=== PATIENT | female | born 1960 | race Caucasian/White ===

== ENCOUNTER 2019-08-20 17:39 | Emergency (ER) | payer OTHER ==
[~2019-08-20] VITALS: Ht 160 cm; Wt 81.6 kg
[2019-08-20 17:44] VITALS: BP 136/92
--- NOTE | 2019-08-20 17:44 | NUR ---
PT BIBA AND PLACED IN BED 12.
[2019-08-20] MEDS ORDERED: KETOROLAC 60 MG/2 ML VIAL IM ONE (18:20)
--- NOTE | 2019-08-20 18:24 | NUR ---
PT RETURNED FROM CT AND PLACED IN BED 12.
--- NOTE | 2019-08-20 18:32 | NUR ---
58 YEAR OLD FEMALE COMPLAINS OF HEADACHE AND BLURRED VISION AFTER A BOX LANDED ON HER HEAD YESTERDAY. SITE ON HEAD IS WITHOUT ABRASION, REDNESS, SWELLING, OR DISCHARGE. DENIED LOSING CONSCIOUSNESS. PUPILS PERRLA. PATIENT STATES SHE FEELS NAUSEA, BUT NO VOMIT. PATIENT IS ALERT AND ORIENTED. BED IN LOWEST POSITION, LOCKED, BED RAIL UPX1. HX LUPUS
[2019-08-20 19:30] VITALS: BP 131/77
--- NOTE | 2019-08-20 19:30 | NUR ---
PT DISCHARGED WITH PAPERWORK. RX JOSE RAMON HARDING. EDUCATED PT REGARDING MEDICATIONS AND S/E. EDUCATED PT REGARDING D/C DIAGNOSIS AND INSTRUCTIONS. PT VERBALIZED UNDERSTANDING OF TEACHING. TOLD PT TO FOLLOW UP WITH PCP AND WHEN TO RETURN TO ED. PT VSS. PT DENIES ANY N/V ALL QUESTIONS ANSWERED.
== END 2019-08-20 19:30 | disposition home or self-care (01) ==
LOC: EDBD 17:39 → MED 17:39
DX: S09.90XA Unspecified injury of head, initial encounter (principal); M32.9 Systemic lupus erythematosus, unspecified; W18.39XA Other fall on same level, initial encounter; Y93.89 Activity, other specified; Y92.89 Other specified places as the place of occurrence of the external cause; Y99.8 Other external cause status
CPT/HCPCS: 70450; 96372; 99284; J1885